=== PATIENT | female | born 1950 | race Caucasian/White ===

== ENCOUNTER 2016-07-18 09:17 | Day surgery (SDC) | payer OTHER ==
[~2016-07-18] VITALS: Ht 144.8 cm; Wt 53.9 kg
[2016-07-18 10:23] VITALS: Ht 144.8 cm; Wt 53.9 kg
[2016-07-18] MEDS ORDERED: SIMV10TA PO (10:34)
[2016-07-18] MEDS ORDERED: EMPA25TA PO (10:34)
[2016-07-18] MEDS ORDERED: CALCIO (10:34)
[2016-07-18] MEDS ORDERED: ASPI-535 PO (10:34)
[2016-07-18] MEDS ORDERED: SITA1TAB5 PO (10:34)
[2016-07-18 11:17] VITALS: BP 136/63; PULSE 74; RESP 18
[2016-07-18] MEDS ORDERED: FENTAnyl 50 MCG/ML VIAL ONE (11:40)
[2016-07-18] MEDS ORDERED: MIDAZOLAM 1 MG/ML 2 ML INJ ONE (11:41)
[2016-07-18 12:10] VITALS: BP 101/60; PULSE 74; RESP 18
--- NOTE | 2016-07-18 12:22 | GILP ---
DATE OF PROCEDURE: 07/18/2016 PROCEDURE: Colonoscopy. PREOPERATIVE DIAGNOSIS: Screening colonoscopy. Rule out colon polyps. POSTOPERATIVE DIAGNOSES: 1. A 3 mm raised polyp noted just above the anus. This was removed with cold biopsy forceps. 2. There is evidence of another 3 mm raised polyp noted in the mid descending colon which was also removed. They appeared benign and they are not bleeding, minimal internal hemorrhoids and minimal ex ternal hemorrhoids were noted as well. DESCRIPTION OF PROCEDURE: After the informed written consent was obtained, the patient was asked to lie on the left lateral side, 2 mg Versed and 50 mcg of fentanyl was given as intravenous anesthesi a. When the patient became somnolent, the Olympus video colonoscope was introduced into the rectum. Sc ope was advanced all the way to the cecum. As mentioned earlier on, 2 polyps were removed from the rectum in the mid descending colon. Occasional diverticula noted. On the way out, minimal internal hemorrhoids and minimal external hemorrhoids were noted and the procedure was terminated. PLAN: Recommend wait for the pathology report. Repeat colonoscopy in 5 years. Dictated By: PARMINDER GOVEA/JARED Conf#: [id number] DID#: [id number] CC: PARMINDER PACHECO MD; RODRIGO PATTERSON MD;*End*
== END 2016-07-19 08:17 | disposition home or self-care (01) ==
LOC: GIL 09:17
PROVIDERS: ATTEND Internal Medicine Gastroenterology
DX: Z12.11 Encounter for screening for malignant neoplasm of colon (principal); D12.4 Benign neoplasm of descending colon; K62.1 Rectal polyp
CPT/HCPCS: 45380; 88305; J2250; J3010; Z7610